=== PATIENT | female | born 1980 | race Caucasian/White ===

== ENCOUNTER 2023-10-20 15:42 | Emergency (ER) | payer SELFPAY ==
[~2023-10-20] VITALS: Ht 170.2 cm; Wt 100.0 kg
[2023-10-20 15:52] VITALS: BP 116/71; PULSE 77; RESP 18; TEMP 98.2; O2SAT 100
[2023-10-20 16:46] LABS: BASOPHILS % 0.7 % (0.0-2.0); EOSINOPHILS % 2.1 % (0.0-5.0); HEMATOCRIT. 41.6 % (36.0-48.0); HEMOGLOBIN. 13.7 g/dL (12.0-16.0); LYMPHOCYTES % 41.7 % (20.0-50.0); MEAN CORPUSCULAR HEMOGLOBIN 29.8 pg (28.0-32.0); MEAN CORPUSCULAR HGB CONC 32.8 g/dL (31.0-37.0); MEAN CORPUSCULAR VOLUME 90.7 fL (81.0-99.0); MEAN PLATELET VOLUME 7.9 fl (7.4-10.4); NEUTROPHILS % 46.5 % (40.0-76.0); PLATELET 345 x1000/uL (130-400); RED BLOOD CELL COUNT 4.58 mill/uL (4.2-5.4); RED CELL DISTRIBUTION WIDTH 14.4 % (11.6-14.6); WHITE BLOOD COUNT 5.3 x1000/uL (4.5-11.0)
[2023-10-20 16:53] LABS: CLARITY URINE CLEAR (CLEAR); COLOR URINE DARK YELLOW (YELLOW); GLUCOSE URINE NEGATIVE (NEGATIVE); KETONES URINE TRACE (NEGATIVE); LEUKOCYTE ESTERASE URINE NEGATIVE (NEGATIVE); NITRITE URINE NEGATIVE (NEGATIVE); OCCULT BLOOD URINE NEGATIVE (NEGATIVE); PROTEIN URINE TRACE (NEGATIVE); SPECIFIC GRAVITY URINE 1.031 (1.005-1.030)
[2023-10-20 17:24] LABS: CHLORIDE 108 mEq/L (98-107); POTASSIUM 3.6 mEq/L (3.5-5.1); SODIUM 140 mEq/L (136-145)
[2023-10-20 17:25] LABS: CARBON DIOXIDE 26 mEq/L (21-32)
[2023-10-20 17:26] LABS: CALCIUM 8.6 mg/dL (8.7-10.4)
[2023-10-20 17:30] LABS: CREATININE 0.9 mg/dL (0.6-1.0); GLUCOSE 92 mg/dL (70-105)
[2023-10-20 17:31] LABS: UREA NITROGEN BLOOD 10 mg/dL (9-23)
[2023-10-20 17:32] LABS: ALANINE AMINOTRANSFERASE 77 IU/L (10-49); ALBUMIN 4.3 g/dL (3.2-4.8); ASPARTATE AMINOTRANSFERASE 38 IU/L (<34)
[2023-10-20 17:33] LABS: BILIRUBIN TOTAL 0.2 mg/dL (0.1-1.0); PROTEIN TOTAL 6.9 g/dL (6.0-8.3)
[2023-10-20 17:43] LABS: RBC URINE 0-2 /hpf (0-2); WBC URINE 0-2 /hpf (0-2)
[2023-10-20 17:44] LABS: BACTERIA URINE TRACE; MUCUS URINE TRACE /lpf (< = 2+); SQUAMOUS EPITHELIAL CELL URINE 1+ /lpf (RARE/1+)
[2023-10-20] MEDS ORDERED: ONDANSETRON 4MG ODT PO ONE (17:45)
[2023-10-20 19:16] LABS: HCG SCREEN NEGATIVE
[2023-10-20] MEDS: ONDANSETRON 4MG ODT PO NR (20:32)
[2023-10-20] MEDS ORDERED: ONDA4TAB11 PO (21:12)
== END 2023-10-20 21:31 | disposition home or self-care (01) ==
LOC: ER 15:42
DX: N20.0 Calculus of kidney (principal); R10.32 Left lower quadrant pain; R11.2 Nausea with vomiting, unspecified; R19.7 Diarrhea, unspecified; R79.89 Other specified abnormal findings of blood chemistry; J45.909 Unspecified asthma, uncomplicated
CPT/HCPCS: 99284; 74176; 76770; 80053; 81003; 81025; 84703; 85025; 36415; Q0162

== ENCOUNTER 2024-04-11 21:50 | Emergency (ER) | payer MEDICAID ==
[~2024-04-11] VITALS: Ht 167.6 cm; Wt 101.0 kg
[~2024-04-11 21:50] MED LIST: ONDA-239 PO
[2024-04-11 21:57] VITALS: O2SAT 99
[2024-04-11 22:31] VITALS: BP 135/73; PULSE 92; RESP 18; TEMP 98.5; O2SAT 100
== END 2024-04-12 00:43 | disposition left against medical advice (07) ==
LOC: ER 21:50
DX: R05.9 Cough, unspecified (principal); J45.909 Unspecified asthma, uncomplicated; Z88.5 Allergy status to narcotic agent; Z98.890 Other specified postprocedural states
CPT/HCPCS: 99281

== ENCOUNTER 2024-09-13 23:04 | Emergency (ER) | payer MEDICAID ==
[~2024-09-13] VITALS: Ht 167.6 cm; Wt 100.0 kg
[2024-09-13 23:07] VITALS: O2SAT 100
[2024-09-14 03:12] LABS: BG BASE EXCESS -1.8 mmol/L (-2.0-3.0); BG CARBOXYHEMOGLOBIN 0.7 % (0.5-1.5); BG DEOXYHEMOGLOBIN 2.2 % (0.0-5.0); BG FRACTION INSPIRED OXYGEN 21; BG HCO3 ACT 22.8 mmol/L (21.0-28.0); BG METHEMOGLOBIN 0.3 % (0.5-1.5); BG OXYGEN SATURATION 97.8 % (94.0-98.0); BG OXYHEMOGLOBIN 96.8 % (94.0-98.0); BG PCO2 38.4 mmHg (32.0-45.0); BG PH 7.391 (7.350-7.450); BG PO2 101.9 mmHg (83.0-108.0); BG SAMPLE SITE RIGHT RADIAL; BG TOTAL HEMOGLOBIN 13.2 g/dL (12.0-16.0); BG VENT MODE ROOM AIR
[2024-09-14 04:38] VITALS: BP 126/67; PULSE 60; RESP 18; TEMP 36.6; O2SAT 99
== END 2024-09-14 04:41 | disposition home or self-care (01) ==
LOC: ER 23:04
DX: R00.2 Palpitations (principal); R42 Dizziness and giddiness; R07.0 Pain in throat; J45.909 Unspecified asthma, uncomplicated; Z88.5 Allergy status to narcotic agent; Z98.890 Other specified postprocedural states; Z77.29 Contact with and (suspected) exposure to other hazardous substances
CPT/HCPCS: 36600; 81025; 82375; 82805; 99283